=== PATIENT | male | born 1945 | race African-American/Black ===

== ENCOUNTER → 2022-04-15 | Day surgery (SDC) | payer MEDICARE, OTHER ==
[~2022-04-15] VITALS: Ht 188 cm; Wt 81.6 kg
[~2022-04-15] MED LIST: AMARYL2 MG PO; AMLODIPINE-BEN1 EACH PO; BAYER ASPIRIN PO; CENTRUM ADULTS1 EACH PO; COREG 3.125M3.125 MG PO; FEOSOL325 MG PO; FLOMAX0.4 MG PO; PANTOPRAZOLE SO40 MG PO; VITAMIN D3 PO; ZOCOR20 MG PO
[2022-04-15 09:47] LABS: HCT 41.7 % (42.0-52.0); HGB 13.3 g/dl (13.2-18.0); MCH 30.2 pg (25.0-31.0); MCHC 31.9 g/dL (32.0-36.0); MCV 94.6 fL (78.0-100.0); MPV 10.2 fL (6.0-9.5); RBC 4.41 M/uL (4.70-6.00); RDW 13.3 % (11.5-14.0)
[2022-04-15 09:56] LABS: ALBUMIN 3.8 g/dL (3.4-5.0); BILIRUBIN - TOTAL 0.8 mg/dL (0.2-1.0); BUN/CREAT RATIO (CALC) 12.9 RATIO; CREATININE 1.47 mg/dL (0.67-1.17); GLOBULIN (CALCULATION) 3.3 g/dL; POTASSIUM 3.9 mmol/L (3.5-5.1); TOTAL PROTEIN 7.1 g/dL (6.4-8.2)
[2022-04-15 10:04] LABS: WBC 36.1 K/uL (4.0-10.5)
== END | disposition home or self-care (01) ==
LOC: FAS 08:53
PROVIDERS: Surgery
DX: Z12.11 Encounter for screening for malignant neoplasm of colon (principal); K57.30 Diverticulosis of large intestine without perforation or abscess without bleeding; E78.5 Hyperlipidemia, unspecified; I12.9 Hypertensive chronic kidney disease with stage 1 through stage 4 chronic kidney disease, or unspecified chronic kidney disease; E11.22 Type 2 diabetes mellitus with diabetic chronic kidney disease; N18.9 Chronic kidney disease, unspecified; Z86.010 Personal history of colon polyps; Z85.028 Personal history of other malignant neoplasm of stomach; Z90.3 Acquired absence of stomach [part of]; Z79.84 Long term (current) use of oral hypoglycemic drugs; Z79.899 Other long term (current) drug therapy
CPT/HCPCS: 36415; 80053; 93005; J2704; J7120